=== PATIENT | male | born 1980 | race American Indian/Alaskan Native ===

== ENCOUNTER 2018-02-24 09:50 | Emergency (ER) | payer SELFPAY ==
[2018-02-24 10:56] VITALS: BP 128/77
--- NOTE | 2018-02-24 12:36 | Emergency Department Report ---
HPI - General Chief Complaint: Dental/Oral Time Seen by Provider: 02/24/18 12:27 - HPI HPI: 37 AA male presents to the emergency department with complaint of a 2 day history of left lower jaw dental pain. This morning the patient says that the pain has started to worsen and he has some swelling around that left lower jaw and/or neck. He tried some ibuprofen for the symptoms without any relief. No fever, drooling or trismus. He just moved to the area and does not have a primary care physician or any dentist. He is a tobacco smoker. ED Past Medical Hx - Past Medical History Previous Medical History?: No - Surgical History Past Surgical History?: No - Social History Smoking Status: Current Every Day Smoker Substance Use Type: None - Medications Home Medications: Home Medications Medication Instructions Recorded Confirmed Last Taken Type Sulfamethoxazole/Trimethoprim 1 each PO BID #20 tablet 02/24/18 Unknown Rx [Bactrim DS TAB] traMADol [Ultram 50 MG tab] 50 mg PO Q6HR PRN #12 tablet 02/24/18 Unknown Rx ED Review of Systems ROS: Stated complaint: TOOTH ACHE Other details as noted in HPI Comment: All other systems reviewed and negative Constitutional: denies: chills, fever Eyes: denies: eye pain, eye discharge, vision change ENT: dental pain. denies: throat pain Respiratory: denies: cough, shortness of breath, wheezing Cardiovascular: denies: chest pain, palpitations Gastrointestinal: denies: abdominal pain, nausea, diarrhea Genitourinary: denies: urgency, dysuria Musculoskeletal: denies: back pain, joint swelling, arthralgia Skin: denies: rash, lesions Neurological: denies: headache, weakness, paresthesias Physical Exam - Physical Exam Vital Signs: Vital Signs 02/24/18 10:53 Temperature 99.5 F Pulse Rate 62 Respiratory 18 Rate Blood Pressure 128/77 O2 Sat by Pulse 99 Oximetry Physical Exam: GENERAL: The patient is well-developed well-nourished. HENT: Normocephalic. Atraumatic. Patient has moist mucous membranes. No drooling or trismus. There is no tonsillar hypertrophy, erythema or exudates. Patient has poor dentition. There is some tenderness to palpation along the left lower mandible, along his teeth, but no visible or palpable abscess. EYES: Extraocular motions are intact. Pupils equal reactive to light bilaterally. NECK: Supple. Trachea is midline. CHEST/LUNGS: Clear to auscultation. There is no respiratory distress noted. HEART/CARDIOVASCULAR: Regular. There is no tachycardia. There is no murmur. ABDOMEN: Abdomen is soft, nontender. Patient has normal bowel sounds. There is no abdominal distention. SKIN: There is a small amount of swelling to the left jaw but no erythema. NEURO: The patient is awake, alert, and oriented. The patient is cooperative. The patient has no focal neurologic deficits. The patient has normal speech. MUSCULOSKELETAL: There is no tenderness or deformity. There is no limitation range of motion. There is no evidence of acute injury. ED Course Vital Signs 02/24/18 10:53 Temperature 99.5 F Pulse Rate 62 Respiratory 18 Rate Blood Pressure 128/77 O2 Sat by Pulse 99 Oximetry ED Medical Decision Making - Medical Decision Making Patient presented with a 2 day history of some dental pain and concern for possible infection. He does have some poor dentition and a broken crown to that left mandibular area. No drooling or trismus. Otherwise oropharynx is clear. No palpable or visible abscess. There is a little bit of swelling to the left side of the face, around the area of the mandible but no particular area of fluctuance or induration. Vital signs stable and being afebrile. Patient will be placed on antibiotics and has been given a referral for primary care and dental. He is instructed to return to the emergency department immediately with any worsening of the symptoms, development of fever, drooling or trismus or with any acute distress. - Differential Diagnosis dentalgia, dental abscess, lymphadenopathy, malignancy Critical Care Time: No Critical care attestation.: If time is entered above; I have spent that time in minutes in the direct care of this critically ill patient, excluding procedure time. ED Disposition Clinical Impression: Pain, dental, Jaw pain, Dental infection Disposition: TO HOME OR SELFCARE Is pt being admited?: No Condition: Stable Instructions: Dental Abscess (ED), Toothache (ED) Additional Instructions: Please follow up with a primary care physician and a dentist in the next few days without fail. Return to the emergency department with any development of fever, trouble swallowing, worsening of your swelling/symptoms, or with any acute distress. Take the antibiotics as prescribed. You have been prescribed a medication that is sedating and therefore should not be taken prior to driving, working, and responsible for children and in no way should be mixed with alcohol of any quantity. Prescriptions: Sulfamethoxazole/Trimethoprim [Bactrim DS TAB] 1 each PO BID #20 tablet traMADol [Ultram 50 MG tab] 50 mg PO Q6HR PRN #12 tablet PRN Reason: Pain Referrals: PRIMARY CARE, [Primary Care Provider] - [facility] [Outside] - [facility] [Outside] - [facility] Time of Disposition: 12:37
== END 2018-02-24 12:46 | disposition home or self-care (01) ==
LOC: ED 09:50
DX: K04.7 Periapical abscess without sinus (principal); K08.89 Other specified disorders of teeth and supporting structures; F17.200 Nicotine dependence, unspecified, uncomplicated
CPT/HCPCS: 99282